=== PATIENT | male | born 1960 | race Caucasian/White ===

== ENCOUNTER 2018-04-09 14:30 | Emergency (ER) | payer MEDICARE, MEDICAID ==
[~2018-04-09] VITALS: Ht 167.6 cm; Wt 88.5 kg
--- NOTE | ~2018-04-09 | EKG ---
[place], [place] ELECTROCARDIOGRAM REPORT NAME: STEW CASTANEDA UNIT #: [id number] ROOM: DOCTOR: EPIPHANY DRAFT REPORT BIRTHDATE: [birth year] [facility] Test Date: 2018-04-09 Test Time: 15:21:38 Pat Name: STEW CASTANEDA Department: ER Room: 20 Gender: M Senior Financial Reporting Accountant: Jose L Mason : 1960 Requested By: ALESSIO SMITH DNP Order Number: [id number] Reading MD: Brent Chi MD Measurements Intervals [place] Rate: 90 P: 47 KS: 170 QRS: 36 QRSD: 98 T: 47 QT: 353 QTc: 432 Interpretive Statements Sinus rhythm Electronically Signed On 04-10-2018 9:34:13 PST by Brent Chi MD CM:EKGRPT:ELECTROCARDIOGRAM REPORT [id number] ALESSIO SMITH DNP EPIPHANY DRAFT REPORT ALESSIO SMITH DNP
[~2018-04-09 14:30] MED LIST: ABILIFY10 MG PO; ABILIFY30 MG PO; ABILIFY5 MG PO; ADVAIR 500/501 E1 INH; ADVAIR DISKUS 51 DSK INH; ANTIVERT25 MG PO; ASPIR-LOW81 MG PO; ATARAX25 MG PO; ATIVAN1 MG PO; BACTROBAN OINT22 GM PO; BENADRYL25 MG PO; BIAXIN500 MG PO; BRIN20TA PO; BRINTELLIX PO; CARBIDOPA & LEV1 TA1 PO; CARVEDILOL12.5 MG PO; CILOXAN 5 ML5 M1 OP; CILOXAN 5 ML5 M1 OT; CLINDAMYCIN HC300 MG PO; CLONAZEPAM1 MG PO; COLACE100 MG PO; COMBIVENT1 AR1 IH; COMBIVENT1 ARO IH; COREG12.5 MG PO; CRESTOR5 MG; CRESTOR5 MG PO; DAYPRO600 M1 PO; DEPLIN7.5 MG PO; DESIPRAMINE HC100 MG PO; DRISDOL50000 IU PO; DYNAPEN500 MG PO; ELIMITE 5%60 GM PO; EXEL13.31 T; EXELON13.3 MG/21 T; EXELON4.6 MG/24 T; EXELON9.5 MG/24 T; EXELON9.5 MG/24 TD; FANAPT10 MG PO; FANAPT12 MG PO; FANAPT4 MG PO; FANAPT6 MG PO; FANAPT8 MG PO; FETZIMA; FETZIMA PO; FIORICET; FIORICET 325 MG1 TAB PO; FLEXERIL10 MG PO; Fetzima PO; GABAPENTIN300 M1 PO; GABAPENTIN300 MG PO; GEODON20 MG PO; GEODON40 MG PO; GEODON80 MG PO; HYDROXYZINE PAM25 M1 PO; HYDROXYZINE PAM50 MG PO; IBU-8800 MG PO; IMIPRAMINE HCL50 MG PO; INVEGA1.5 MG PO; INVEGA6 MG PO; KENALOG0.1% TP; KLONOPIN0.5 MG PO; KLONOPIN1 MG PO; KLONOPIN2 M1 PO; KLONOPIN2 MG PO; LAMICTAL ODT200 MG PO; LAMICTAL100 MG PO; LAMICTAL200 MG PO; LAMICTAL25 MG PO; LAMOTRIGINE200 MG PO; LATUDA20 MG PO; LEVOFLOXACIN500 MG PO; LIPITOR20 MG PO; LISINOPRIL10 MG PO; LISINOPRIL20 MG PO; LITHIUM CARBON300 M1 PO; LITHIUM CARBON300 M2 PO; LOPRESSOR25 MG PO; LOPRESSOR50 MG PO; MAPAP325 MG PO; MASON NATURAL2000 IU PO; MEDROL DOSEPAK4 MG PO; MELOXICAM7.5 MG PO; METFORMIN HCL500 MG PO; METHYLPHENIDATE5 M1 PO; METOPROLOL SUCC50 M1 PO; METOPROLOL25 MG PO; MIRALAX17 GM/DOSE PO; MIRTAZAPINE45 MG PO; MOM30 M1 PO; MOTRIN600 MG PO; MOTRIN800 MG PO; NAPROSYN500 MG PO; NEURONTIN300 MG PO; NORFLEX100 MG PO; OXYGEN; PAXIL20 MG PO; PAXIL40 MG PO; PERCOCET 325 MG1 TA2 PO; PERCOCET 325 MG1 TA5 PO; PERCOCET 325 MG1 TA7 PO; PERCOCET 325 MG1 TAB PO; PRAVACHOL20 MG PO; PRAVASTATIN SOD10 MG PO; PRAVASTATIN SOD40 MG PO; PREDNICOT20 MG PO; PREDNISONE10 MG PO; PRILOSEC20 MG PO; PRIMIDONE50 MG PO; PRISTIQ50 MG PO; PROAIR HFA0.09 MG/AC INH; PROTONIX40 MG PO; REMERON30 MG PO; REXULTI2 MG PO; RITALIN PO; ROBAXIN750 MG PO; ROZEREM8 MG PO; SEPTRA DS 800 M1 TAB PO; SEROQUEL XR300 MG PO; SEROQUEL200 MG PO; SEROQUEL25 MG PO; SEROQUEL300 MG PO; THERAGRAN1 TA2 PO; TOBRADEX 0.1%-2.5 ML OP; TRAMADOL HCL50 MG PO; TYLENOL W/CODEI1 TA2 PO; Theragran M,Cen1 TAB PO; VENTOLIN H0.09 MG/AC INH; VIBRAMYCIN100 MG PO; VIIBRYD40 MG PO; VISTARIL100 MG PO; VISTARIL50 MG PO; VITAMIN D2000 IU PO; VITAMIN D5000 IU PO; VITAMIN D50000 I2 PO; VITAMIN D50000 I3 PO; VYVANSE50 MG PO; XANAX0.25 MG PO; ZANAFLEX4 MG PO; ZESTRIL10 MG PO; ZITHROMAX Z PA250 MG PO; ZOFRAN4 MG PO; ZOLPIDEM5 MG PO; ZYPREXA10 MG PO; ZYPREXA20 MG PO; ZYPREXA5 MG PO; [UNRECOGNIZED DRUG - OTHER] PO; [UNRECOGNIZED DRUG - REMARK]
[2018-04-09 15:39] LABS: BASO # 0.1 10*3/uL (0.0-0.1); BASO % 0.8 % (0.0-1.0); EOS # 0.8 10*3/uL (0.0-0.4); EOS % 8.5 % (1.0-4.0); HEMATOCRIT 43.3 % (42.0-52.0); HEMOGLOBIN 14.9 g/dl (14.0-18.0); LYMPH # 1.3 10*3/uL (1.3-4.4); LYMPH % 12.7 % (27.0-41.0); MEAN CELL VOLUME 93.7 fl (80.0-94.0); MEAN CORPUSCULAR HGB 32.3 pg (27.0-31.0); MEAN CORPUSCULAR HGB CONC 34.4 g/dl (33.0-37.0); MEAN PLATELET VOLUME 10.2 fl (9.6-12.3); MONO # 0.7 10*3/uL (0.1-1.0); MONO % 6.9 % (3.0-9.0); NEUT % 70.7 % (47.0-73.0); PLATELET COUNT AUTOMATED 236 10*3/uL (130-400); RED BLOOD COUNT 4.62 10*6/uL (4.50-5.90); RED CELL DISTRI WIDTH 13.6 % (0-14.5); WHITE BLOOD COUNT 9.9 10*3/uL (4.8-10.8)
[2018-04-09 15:47] LABS: ACT PARTIAL THROMBO TIME 24.4 SECONDS (20.8-31.5); INTERNATIONAL NORM RATIO 1.1 (2.0-3.5)
[2018-04-09 15:53] LABS: ALBUMIN 3.6 gm/dl (3.1-4.5); ALKALINE PHOSPHATASE 111 U/L (45-117); BUN 6 mg/dl (7-24); CHLORIDE 105 mmol/L (98-107); LIPASE 123 U/L (73-393); SGOT/AST 27 IU/L (3-35); SGPT/ALT 30 U/L (12-78); SODIUM 137 mmol/L (136-145); TOTAL PROTEIN 7.3 gm/dL (6.4-8.2)
[2018-04-09 15:56] LABS: TROPONIN I < 0.015 ng/ml (<0.045)
[2018-04-09 15:57] LABS: BILIRUBIN NEGATIVE (NEGATIVE); BLOOD NEGATIVE (NEGATIVE); CLARITY CLEAR (CLEAR); COLOR YELLOW (YELLOW); GLUCOSE NEGATIVE (NEGATIVE); KETONE NEGATIVE (NEGATIVE); LEUKO ESTERASE TRACE (NEGATIVE); NITRITE NEGATIVE (NEGATIVE); SPECIFIC GRAVITY 1.015 (1.005-1.030); UROBILINOGEN 0.2 E.U./dl (0.2-1.0)
[2018-04-09 16:05] LABS: BACTERIA 1+; EPITHELIAL CELLS 0-2; RBC 0-2 rbc/hpf (0-2)
[2018-04-09 17:30] VITALS: BP 130/74
== END 2018-04-09 17:30 | disposition short-term general hospital (02) ==
LOC: ED 14:30
PROVIDERS: Nurse Practitioner Family
DX: I63.9 Cerebral infarction, unspecified (principal); J44.9 Chronic obstructive pulmonary disease, unspecified; I10 Essential (primary) hypertension; E78.5 Hyperlipidemia, unspecified; E11.9 Type 2 diabetes mellitus without complications; G43.909 Migraine, unspecified, not intractable, without status migrainosus; Z88.0 Allergy status to penicillin; Z88.6 Allergy status to analgesic agent; Z79.899 Other long term (current) drug therapy; Z87.891 Personal history of nicotine dependence

== ENCOUNTER 2018-12-11 20:14 | Inpatient (IN) | payer MEDICARE ==
[~2018-12-11] VITALS: Ht 167.6 cm; Wt 90.8 kg
--- NOTE | ~2018-12-11 | EKG ---
[place], [place] ELECTROCARDIOGRAM REPORT NAME: STEW CASTANEAD UNIT #: [id number] ROOM: 404 DOCTOR: JUAN ANTONIO DRAFT REPORT BIRTHDATE: [birth year] [facility] Test Date: 2018-12-12 Test Time: 01:37:21 Pat Name: STEW CASTANEDA Department: Room: 404 Gender: M Patient Observer: Elina Chandler : 1960 Requested By: LAURA CARNES Order Number: [id number] Reading MD: Shadi Morel Measurements Intervals [place] Rate: 69 P: 55 NC: 194 QRS: 42 QRSD: 94 T: 34 QT: 367 QTc: 393 Interpretive Statements Sinus rhythm Probable left atrial enlargement Baseline wander in lead(s) V4,V5 Partial missing lead(s): V6 Compared to ECG 09/06/2018 19:36:20 Right-axis deviation no longer present Electronically Signed On 12-13-2018 12:08:26 PDT by Shadi Morel CM:EKGRPT:ELECTROCARDIOGRAM REPORT [id number] LAURA LANGFORD DRAFT REPORT LAURA CARNES DO
--- NOTE | ~2018-12-11 | EKG ---
[place], [place] ELECTROCARDIOGRAM REPORT NAME: STEW CASTANEDA UNIT #: [id number] ROOM: 404 DOCTOR: JUAN ANTONIO DRAFT REPORT BIRTHDATE: [birth year] [facility] Test Date: 2018-12-11 Test Time: 20:18:20 Pat Name: STEW CASTANEDA Department: Room: 404 Gender: M Academy Director: : 1960 Requested By: LAURA CARNES Order Number: [id number] Reading MD: Shadi Morel Measurements Intervals [place] Rate: 81 P: [place]: QRS: 43 QRSD: 104 T: 46 QT: 360 QTc: 418 Interpretive Statements Sinus rhyhtm Can not rule out Atrial flutter with block due to artifacts Abnormal R-wave progression, early transition Compared to ECG 09/06/2018 19:36:20 AV block, advanced (high-grade) now present Sinus rhythm no longer present Right-axis deviation no longer present Electronically Signed On 12-13-2018 12:07:44 PDT by Shadi Morel CM:EKGRPT:ELECTROCARDIOGRAM REPORT 2018 1207 LAURA LANGFORD DRAFT REPORT LAURA CARNES DO
--- NOTE | ~2018-12-11 | EKG ---
[place], [place] ELECTROCARDIOGRAM REPORT NAME: STEW CASTANEDA UNIT #: [id number] ROOM: 404 DOCTOR: JUAN ANTONIO DRAFT REPORT BIRTHDATE: [birth year] [facility] Test Date: 2018-12-11 Test Time: 21:55:51 Pat Name: STEW CASTANEDA Department: Room: 404 Gender: M Instrument Sterilizer: LINH : 1960 Requested By: LAURA CARNES Order Number: [id number] Reading MD: Shadi Morel Measurements Intervals [place] Rate: 76 P: 56 CO: 178 QRS: 34 QRSD: 100 T: 35 QT: 364 QTc: 410 Interpretive Statements Sinus rhythm Compared to ECG 09/06/2018 19:36:20 Right-axis deviation no longer present Electronically Signed On 12-13-2018 12:08:01 PDT by Shadi Morel CM:EKGRPT:ELECTROCARDIOGRAM REPORT 1208 LAURA LANGFORD DRAFT REPORT LAURA CARNES DO
[~2018-12-11 20:14] MED LIST changes: +ABILIFY15 MG PO; +ANORO ELLIPTA1 EACH INH; +ASPIRIN81 M1 PO; +IMITREX100 MG PO; +LAMICTAL XR300 M1 PO; +TOPAMAX100 M1 PO; +TRINTELLIX20 MG PO
[2018-12-11 20:18] VITALS: BP 122/74
[2018-12-11 20:32] LABS: BASO # 0.1 10*3/uL (0.0-0.1); BASO % 0.9 % (0.0-1.0); EOS # 0.9 10*3/uL (0.0-0.4); EOS % 9.1 % (1.0-4.0); HEMATOCRIT 45.9 % (42.0-52.0); HEMOGLOBIN 15.5 g/dl (14.0-18.0); LYMPH # 2.3 10*3/uL (1.3-4.4); MEAN CORPUSCULAR HGB 32.4 pg (27.0-31.0); MEAN CORPUSCULAR HGB CONC 33.8 g/dl (33.0-37.0); MEAN PLATELET VOLUME 10.1 fl (9.6-12.3); MONO # 0.8 10*3/uL (0.1-1.0); MONO % 8.2 % (3.0-9.0); NEUT # 5.7 10*3/uL (2.3-7.9); NEUT % 58.3 % (47.0-73.0); PLATELET COUNT AUTOMATED 209 10*3/uL (130-400); RED BLOOD COUNT 4.78 10*6/uL (4.50-5.90); RED CELL DISTRI WIDTH 14.6 % (0-14.5); WHITE BLOOD COUNT 9.9 10*3/uL (4.8-10.8)
[2018-12-11 20:51] LABS: ALBUMIN 3.7 gm/dl (3.1-4.5); ALKALINE PHOSPHATASE 109 U/L (45-117); BUN 5 mg/dl (7-24); CHLORIDE 104 mmol/L (98-107); CREATININE 1.19 mg/dL (0.70-1.30); POTASSIUM 3.7 mmol/L (3.5-5.1); SGOT/AST 15 IU/L (3-35); SGPT/ALT 26 U/L (12-78); SODIUM 134 mmol/L (136-145)
[2018-12-11 20:52] LABS: TROPONIN I < 0.015 ng/ml (<0.045)
[2018-12-11 21:08] LABS: ACT PARTIAL THROMBO TIME 27.9 SECONDS (20.0-32.1)
--- NOTE | 2018-12-11 21:14 | NUR ---
FAMILY TO DESK STATES PT IS NOT ACTING RIGHT WAS STARRING OFF IN SPACE I WENT TO CHECK ON PT IS WAS ABLE TO TELL ME HIS NAME AND WHERE HE WAS AT DENIES HEADACHE STILL FEELING A LITTLE DIZZY WILL CONTINUE TO MONITOR CALL LIGHT IN REACH
[2018-12-11 21:15] VITALS: BP 106/67
[2018-12-11 22:16] VITALS: BP 92/56
--- NOTE | 2018-12-11 22:29 | NUR ---
PTS BLOOD PRESSURE WAS A LITTLE LOW DR CARNES NOTIFIED
--- NOTE | 2018-12-11 23:14 | NUR ---
NURSE TO NURSE FROM RIANA DAMON
[2018-12-12] VITALS: BP 121/73
[2018-12-12 00:32] VITALS: BP 111/72
[2018-12-12 00:55] VITALS: BP 121/73
--- NOTE | 2018-12-12 00:55 | NUR ---
A 58, admitted to , under the services of BELÉN Sen DO with a diagnosis of CHEST PAIN. Chief complaint is CHEST PAIN. Patient arrived via stretcher from ER. Monitor applied. Initial assessment completed. Vital signs taken and recorded. BELÉN SEN DO notified of admission to the unit. Orders received. See assessment for past medical history, medications and allergies. Patient and/or family oriented to unit. [facility] visitation policy reviewed. Clothing/patient valuable form completed. BALTAZAR CAMERON
--- NOTE | 2018-12-12 01:30 | NUR ---
MED LIST UPDATED WITH PATIENT LIST AND .
[2018-12-12] MEDS ORDERED: PRAVASTATIN SOD80 MG PO (01:32)
[2018-12-12] MEDS ORDERED: ANORO ELLIPTA1 EACH INH (01:33)
[2018-12-12] MEDS ORDERED: METOPROLOL SUCC25 M2 PO (01:37)
[2018-12-12] MEDS ORDERED: ASPIR LOW81 MG PO (01:38)
[2018-12-12] MEDS ORDERED: VRAYLAR4.5 MG PO (01:44)
[2018-12-12] MEDS ORDERED: TOPAMAX100 M1 PO (01:45)
[2018-12-12 06:24] LABS: BASO # 0.1 10*3/uL (0.0-0.1); BASO % 1.1 % (0.0-1.0); EOS # 1.1 10*3/uL (0.0-0.4); EOS % 12.6 % (1.0-4.0); HEMATOCRIT 44.4 % (42.0-52.0); HEMOGLOBIN 15.4 g/dl (14.0-18.0); LYMPH # 1.9 10*3/uL (1.3-4.4); MEAN CELL VOLUME 94.7 fl (80.0-94.0); MEAN CORPUSCULAR HGB 32.8 pg (27.0-31.0); MEAN CORPUSCULAR HGB CONC 34.7 g/dl (33.0-37.0); MEAN PLATELET VOLUME 10.3 fl (9.6-12.3); MONO # 0.8 10*3/uL (0.1-1.0); MONO % 9.4 % (3.0-9.0); NEUT # 4.5 10*3/uL (2.3-7.9); NEUT % 53.1 % (47.0-73.0); PLATELET COUNT AUTOMATED 194 10*3/uL (130-400); RED BLOOD COUNT 4.69 10*6/uL (4.50-5.90); RED CELL DISTRI WIDTH 14.6 % (0-14.5); WHITE BLOOD COUNT 8.4 10*3/uL (4.8-10.8)
[2018-12-12 06:50] LABS: ALBUMIN 3.3 gm/dl (3.1-4.5); BUN 6 mg/dl (7-24); CHLORIDE 109 mmol/L (98-107); POTASSIUM 4.6 mmol/L (3.5-5.1); SGPT/ALT 24 U/L (12-78); SODIUM 138 mmol/L (136-145)
[2018-12-12 06:53] LABS: ALKALINE PHOSPHATASE 103 U/L (45-117); CREATININE 1.12 mg/dL (0.70-1.30); PHOSPHOROUS 3.6 mg/dL (2.5-4.9); SGOT/AST 15 IU/L (3-35); TOTAL PROTEIN 6.3 gm/dL (6.4-8.2)
--- NOTE | 2018-12-12 09:00 | NUR ---
Chemicals Distiller in to talk to patient. Patient states lives at home with . There are few steps in the home. Physician: evangelina alcaraz [facility] Home health services: none Patient's level of ADLs: INDEPENDENT Patient has working utilities: all working DME: none Follow-up physician's appointment after d/c: will be made by hospitalist nurse director upon discharge Does patient want to access PORTAL?: no Discharge plan discussed with patient, he lives at home with , he is independent in adls and ambulation, patient states he will return home when able and denies any home needs. MIKI MATHIAS
[2018-12-12 12:00] VITALS: BP 119/60; BP 121/73
--- NOTE | 2018-12-12 14:47 | NUR ---
Discharge instructions reviewed with patient/family. Patient receptive and verbalizes understanding. Follow-up care arranged. Written instructions given to patient/family. ANABEL CERNA
== END 2018-12-12 14:47 | disposition home or self-care (01) | DRG 313 ==
LOC: ED 20:14 → EDHOLD 23:34 → 4E 23:34
PROVIDERS: Emergency Medicine; Student in an Organized Health Care Education/Training Program; ADMIT Internal Medicine
DX: R07.89 Other chest pain (principal); E87.1 Hypo-osmolality and hyponatremia; I10 Essential (primary) hypertension; F41.9 Anxiety disorder, unspecified; J45.909 Unspecified asthma, uncomplicated; J44.9 Chronic obstructive pulmonary disease, unspecified; F32.9 Major depressive disorder, single episode, unspecified; K21.9 Gastro-esophageal reflux disease without esophagitis; E78.5 Hyperlipidemia, unspecified; G40.909 Epilepsy, unspecified, not intractable, without status epilepticus; D72.1 Eosinophilia; R73.9 Hyperglycemia, unspecified; E83.41 Hypermagnesemia; D75.89 Other specified diseases of blood and blood-forming organs; F17.210 Nicotine dependence, cigarettes, uncomplicated; G25.0 Essential tremor; F10.10 Alcohol abuse, uncomplicated; E87.8 Other disorders of electrolyte and fluid balance, not elsewhere classified; D72.810 Lymphocytopenia; Z90.49 Acquired absence of other specified parts of digestive tract; Z90.89 Acquired absence of other organs; Z88.0 Allergy status to penicillin; Z88.8 Allergy status to other drugs, medicaments and biological substances; Z79.82 Long term (current) use of aspirin; Z79.899 Other long term (current) drug therapy; Z89.022 Acquired absence of left finger(s); Z82.49 Family history of ischemic heart disease and other diseases of the circulatory system; Z80.1 Family history of malignant neoplasm of trachea, bronchus and lung; Z81.8 Family history of other mental and behavioral disorders; Z83.6 Family history of other diseases of the respiratory system; Z71.6 Tobacco abuse counseling

== ENCOUNTER 2019-04-14 13:21 | Inpatient (IN) | payer MEDICARE ==
[~2019-04-14] VITALS: Ht 170.1 cm; Wt 83.9 kg
[~2019-04-14 13:21] MED LIST changes: +ASPIR LOW81 MG PO; +METOPROLOL SUCC25 M2 PO; +PRAVASTATIN SOD80 MG PO; +VRAYLAR4.5 MG PO
[2019-04-14 13:22] VITALS: BP 139/88
--- NOTE | 2019-04-14 13:45 | NUR ---
PT ACS PROTOCOL, EKG DONE WITHIN 10 MINUTES, DR NEUMANN WANTED TO OBTAINED A NEW EKG, PT WAS SHAKING, NEW EKG MDONE OUT OF 10 MIN PROTOCOL WINDOW.
[2019-04-14 13:54] LABS: BASO # 0.1 10*3/uL (0.0-0.1); BASO % 0.8 % (0.0-1.0); EOS # 0.8 10*3/uL (0.0-0.4); EOS % 10.7 % (1.0-4.0); HEMOGLOBIN 15.4 g/dl (14.0-18.0); LYMPH # 1.5 10*3/uL (1.3-4.4); LYMPH % 20.1 % (27.0-41.0); MEAN CELL VOLUME 94.9 fl (80.0-94.0); MEAN CORPUSCULAR HGB 32.5 pg (27.0-31.0); MEAN CORPUSCULAR HGB CONC 34.2 g/dl (33.0-37.0); MONO # 0.6 10*3/uL (0.1-1.0); NEUT # 4.5 10*3/uL (2.3-7.9); PLATELET COUNT AUTOMATED 204 10*3/uL (130-400); RED BLOOD COUNT 4.74 10*6/uL (4.50-5.90); RED CELL DISTRI WIDTH 13.4 % (0-14.5); WHITE BLOOD COUNT 7.4 10*3/uL (4.8-10.8)
[2019-04-14 14:01] LABS: ACT PARTIAL THROMBO TIME 27.6 SECONDS (20.0-32.1)
[2019-04-14 14:06] LABS: ALBUMIN 3.8 gm/dl (3.1-4.5); ALKALINE PHOSPHATASE 95 U/L (45-117); BUN 8 mg/dl (7-24); CHLORIDE 105 mmol/L (98-107); CREATININE 1.01 mg/dL (0.70-1.30); POTASSIUM 4.1 mmol/L (3.5-5.1); SGOT/AST 18 IU/L (3-35); SGPT/ALT 34 U/L (12-78); SODIUM 135 mmol/L (136-145); TOTAL PROTEIN 7.3 gm/dL (6.4-8.2)
[2019-04-14 14:08] LABS: LIPASE 109 U/L (73-393)
[2019-04-14 14:10] LABS: TROPONIN I < 0.015 ng/ml (<0.045)
[2019-04-14 14:57] VITALS: BP 126/74
[2019-04-14 15:30] VITALS: BP 122/68
--- NOTE | 2019-04-14 15:42 | NUR ---
PT RESTING IN ROOM, DENIES ANY SOB OR CHEST PAIN.
[2019-04-14 16:45] VITALS: BP 132/789
--- NOTE | 2019-04-14 16:45 | NUR ---
Called [facility] Unitaldo Bloor to fax updated med list.
[2019-04-14 17:00] VITALS: BP 136/81
--- NOTE | 2019-04-14 17:00 | NUR ---
A 58, admitted to , under the services of JAYRO Staton DO with a diagnosis of Chest Pain r/o [place]. Chief complaint is shortness of breath. Patient arrived via stretcher from ER. Monitor applied. Initial assessment completed. Vital signs taken and recorded. JAYRO STATON DO notified of admission to the unit. Orders received. See assessment for past medical history, medications and allergies. Patient and/or family oriented to unit. [address] visitation policy reviewed. Clothing/patient valuable form completed. JAC BROWNE
--- NOTE | 2019-04-14 17:08 | NUR ---
Face to face encounter with Dr. Chi regarding consult for chest pain. Labs were reviewed and date of echo and stress test discussed. No new orders at this time. Physician to follow up at bedside.
[2019-04-14] MEDS ORDERED: CRESTOR40 M1 PO (17:24)
[2019-04-14] MEDS ORDERED: MYSOLINE50 M2 PO (17:24)
[2019-04-14 20:00] VITALS: BP 117/74
--- NOTE | 2019-04-14 23:30 | NUR ---
PT RESTING IN BED. VOICES NO CONCERNS AT THIS TIME. RESPS EASY AND NON LABORED. NO S/S OF DISTRESS NOTED. VSS. WHITE BOARD UPDATED. CALL LIGHT WITHIN REACH.
[2019-04-15] VITALS: BP 116/61
--- NOTE | 2019-04-15 03:42 | NUR ---
Patient sleeping. Respirations relaxed and easy. Siderails up . [place] on. No s/s of distress noted. Call light within reach HISSOM,JOHN
--- NOTE | 2019-04-15 05:09 | NUR ---
24 HR chart check completed.
[2019-04-15 06:17] LABS: BASO % 0.2 % (0.0-1.0); EOS % 0.2 % (1.0-4.0); HEMATOCRIT 45.5 % (42.0-52.0); HEMOGLOBIN 15.4 g/dl (14.0-18.0); LYMPH # 0.7 10*3/uL (1.3-4.4); LYMPH % 6.6 % (27.0-41.0); MEAN CELL VOLUME 95.4 fl (80.0-94.0); MEAN CORPUSCULAR HGB 32.3 pg (27.0-31.0); MEAN CORPUSCULAR HGB CONC 33.8 g/dl (33.0-37.0); MEAN PLATELET VOLUME 10.3 fl (9.6-12.3); MONO # 0.6 10*3/uL (0.1-1.0); MONO % 5.5 % (3.0-9.0); NEUT % 86.8 % (47.0-73.0); PLATELET COUNT AUTOMATED 222 10*3/uL (130-400); RED BLOOD COUNT 4.77 10*6/uL (4.50-5.90); RED CELL DISTRI WIDTH 13.2 % (0-14.5); WHITE BLOOD COUNT 10.4 10*3/uL (4.8-10.8)
[2019-04-15 06:25] LABS: ALBUMIN 3.4 gm/dl (3.1-4.5); BUN 10 mg/dl (7-24); CHLORIDE 109 mmol/L (98-107); CHOLESTEROL 138 mg/dL (<200); CREATININE 1.02 mg/dL (0.70-1.30); PHOSPHOROUS 3.8 mg/dL (2.5-4.9); POTASSIUM 4.5 mmol/L (3.5-5.1); SGOT/AST 13 IU/L (3-35); SGPT/ALT 29 U/L (12-78); SODIUM 137 mmol/L (136-145); TOTAL PROTEIN 6.7 gm/dL (6.4-8.2); TRIGLYCERIDES 53 mg/dl (<150); VLDL CHOLESTEROL 11 mg/dL (6-40)
[2019-04-15 06:31] LABS: ALKALINE PHOSPHATASE 85 U/L (45-117); FREE T4 0.82 ng/dl (0.76-1.46); HDL CHOLESTEROL 59 mg/dl (40-60); LDL CHOLESTEROL 68 mg/dL (9-159)
--- NOTE | 2019-04-15 07:30 | NUR ---
SLEEPING SOUNDLY DURING SHIFT CHANGE ROUNDS.
[2019-04-15 07:42] LABS: VITAMIN D, 25-HYDROXY 24.6 ng/mL (30-100)
--- NOTE | 2019-04-15 07:48 | NUR ---
Shift chart check completed.24 HR chart check completed.
--- NOTE | 2019-04-15 07:52 | NUR ---
PT TO RADIOLOGY VIA W/C FOR TWO VIEW CXR.
[2019-04-15 08:30] VITALS: BP 114/80
--- NOTE | 2019-04-15 08:40 | NUR ---
PT HAS RETURNED FROM RADIOLOGY. NO C/O PAIN OR SHORTNESS OF BREATH AT THIS TIME. PT PROVIDED WITH SPUTUM CONTAINER AND INSTRUCTIONS.
--- NOTE | 2019-04-15 09:00 | NUR ---
Speech Writer in to talk to patient. Patient states lives at home with . There are few steps in the home. Physician: evangelina alcaraz [facility] Home health services: none Patient's level of ADLs: INDEPENDENT Patient has working utilities: all working DME: none Follow-up physician's appointment after d/c: will be made by hospitalist nurse director upon discharge Does patient want to access PORTAL?: no Discharge plan discussed with patient he lives at home with , he is independent in adls and ambulation, he states he will return home when medically stable and denies any home needs, case management will follow. MIKI MATHIAS
[2019-04-15 12:00] VITALS: BP 111/77
--- NOTE | 2019-04-15 12:48 | NUR ---
PT CO A HEADACHE. MEDICATED WITH PRN TYLENOL. WILL CHECK EFFECTIVENESS.
--- NOTE | 2019-04-15 15:00 | NUR ---
EARLIER TYLENOL WAS EFFECTIVE TO ALLOW PT TO NAP.
--- NOTE | 2019-04-15 15:10 | NUR ---
Patient resting quietly with no c/o discomfort. Respirations easy and regular. Vital signs stable. No overt distress. RONALDO TOUSSAINT
[2019-04-15 16:00] VITALS: BP 123/62
--- NOTE | 2019-04-15 16:50 | NUR ---
PT C/O HEADACHE /10 PRN TYLENOL GIVEN
--- NOTE | 2019-04-15 17:50 | NUR ---
NO C/O OF H/A AFTER PRN TYLENOL GIVEN
--- NOTE | 2019-04-15 19:30 | NUR ---
PT RESTING IN BED. VOICES NO CONCERNS AT THIS TIME. RESPS EASY AND NON LABORED. NO S/S OF DISTRESS NOTED. VSS. WHITE BOARD UPDATED. FAMILY IN ROOM VISITING. CALL LIGHT WITHIN REACH.
[2019-04-15 20:00] VITALS: BP 112/68
--- NOTE | 2019-04-15 21:28 | NUR ---
PT COMPLAINING OF SORE THROAT FROM COUGHING. REQUESTING COUGH DROPS. SPOKE WITH DR CARTAGENA WHO STATED TO GIVE HIM CEPACOL DROPS Q6H
--- NOTE | 2019-04-15 22:06 | NUR ---
24 HR chart check completed.
[2019-04-16] VITALS: BP 111/67
--- NOTE | 2019-04-16 03:01 | NUR ---
Patient sleeping. Respirations relaxed and easy. Siderails up . [place] on. No s/s of distress noted. Call light within reach HISSOM,JOHN
[2019-04-16 08:00] VITALS: BP 148/83
[2019-04-16] MEDS ORDERED: ZITHROMAX500 MG PO (08:58)
[2019-04-16] MEDS ORDERED: PREDNISONE10 MG PO (08:58)
[2019-04-16] MEDS ORDERED: IMDUR SA30 MG PO (08:58)
[2019-04-16] MEDS ORDERED: VITAMIN D3125 MC1 PO (08:58)
--- NOTE | 2019-04-16 09:00 | NUR ---
case management visits with patient, he states he will be discharged to home today and denies any home needs
--- NOTE | 2019-04-16 09:58 | NUR ---
PT DISCHARGED HOME AT THIS TIME. HEPLOCK DISCONTINUED. DISCHAGE INSTRUCTIONS REVIEWED WELL PRESCRIPTION INFO AND FOLLOW UP CARE. VSS.
== END 2019-04-16 09:58 | disposition home or self-care (01) | DRG 205 ==
LOC: ED 13:21 → 4E 15:36 → EDHOLD 15:36 → 4E 16:51
PROVIDERS: Emergency Medicine; Registered Nurse; ADMIT Internal Medicine
DX: M94.0 Chondrocostal junction syndrome [Tietze] (principal); J18.9 Pneumonia, unspecified organism; J44.1 Chronic obstructive pulmonary disease with (acute) exacerbation; J44.0 Chronic obstructive pulmonary disease with (acute) lower respiratory infection; E87.1 Hypo-osmolality and hyponatremia; E44.0 Moderate protein-calorie malnutrition; I10 Essential (primary) hypertension; F41.9 Anxiety disorder, unspecified; E78.5 Hyperlipidemia, unspecified; F17.210 Nicotine dependence, cigarettes, uncomplicated; K21.9 Gastro-esophageal reflux disease without esophagitis; G25.0 Essential tremor; D75.89 Other specified diseases of blood and blood-forming organs; F31.9 Bipolar disorder, unspecified; G47.33 Obstructive sleep apnea (adult) (pediatric); E55.9 Vitamin D deficiency, unspecified; G40.909 Epilepsy, unspecified, not intractable, without status epilepticus; Z91.19 Patient's noncompliance with other medical treatment and regimen; Z90.49 Acquired absence of other specified parts of digestive tract; Z71.6 Tobacco abuse counseling; Z68.29 Body mass index [BMI] 29.0-29.9, adult; Z80.1 Family history of malignant neoplasm of trachea, bronchus and lung; Z88.5 Allergy status to narcotic agent; Z88.0 Allergy status to penicillin; Z88.8 Allergy status to other drugs, medicaments and biological substances; Z79.82 Long term (current) use of aspirin; Z79.899 Other long term (current) drug therapy

== ENCOUNTER → 2019-04-25 | Outpatient (CLI) | payer MEDICARE, MEDICAID ==
[~2019-04-25] MED LIST changes: +CRESTOR40 M1 PO; +IMDUR SA30 MG PO; +MYSOLINE50 M2 PO; +VITAMIN D3125 MC1 PO; +ZITHROMAX500 MG PO
== END | disposition home or self-care (01) ==
LOC: LAB 11:04
DX: J18.9 Pneumonia, unspecified organism (principal)

== ENCOUNTER 2019-06-10 19:07 | Inpatient (IN) | payer MEDICARE ==
[~2019-06-10] VITALS: Ht 167.6 cm; Wt 104.4 kg
[2019-06-10 19:16] VITALS: BP 138/80
[2019-06-10 19:54] LABS: BASO % 0.3 % (0.0-1.0); EOS # 0.2 10*3/uL (0.0-0.4); EOS % 5.5 % (1.0-4.0); HEMATOCRIT 38.2 % (42.0-52.0); HEMOGLOBIN 13.5 g/dl (14.0-18.0); MEAN CELL VOLUME 92.3 fl (80.0-94.0); MEAN CORPUSCULAR HGB 32.6 pg (27.0-31.0); MEAN CORPUSCULAR HGB CONC 35.3 g/dl (33.0-37.0); MEAN PLATELET VOLUME 9.7 fl (9.6-12.3); MONO # 0.5 10*3/uL (0.1-1.0); MONO % 11.3 % (3.0-9.0); NEUT # 2.3 10*3/uL (2.3-7.9); NEUT % 57.6 % (47.0-73.0); PLATELET COUNT AUTOMATED 135 10*3/uL (130-400); RED BLOOD COUNT 4.14 10*6/uL (4.50-5.90); RED CELL DISTRI WIDTH 13.5 % (0-14.5)
[2019-06-10 20:09] LABS: ALBUMIN 3.1 gm/dl (3.1-4.5); ALKALINE PHOSPHATASE 81 U/L (45-117); BUN 6 mg/dl (7-24); CHLORIDE 100 mmol/L (98-107); CREATININE 1.02 mg/dL (0.70-1.30); SGOT/AST 51 IU/L (3-35); SGPT/ALT 45 U/L (12-78); SODIUM 130 mmol/L (136-145); TOTAL PROTEIN 6.3 gm/dL (6.4-8.2)
[2019-06-11] VITALS: BP 123/76
[2019-06-11 00:45] VITALS: BP 127/72
[2019-06-11 06:49] LABS: BASO % 0.3 % (0.0-1.0); EOS # 0.2 10*3/uL (0.0-0.4); HEMOGLOBIN 14.3 g/dl (14.0-18.0); LYMPH # 0.9 10*3/uL (1.3-4.4); LYMPH % 31.8 % (27.0-41.0); MEAN CELL VOLUME 94.3 fl (80.0-94.0); MEAN CORPUSCULAR HGB 32.9 pg (27.0-31.0); MEAN CORPUSCULAR HGB CONC 34.9 g/dl (33.0-37.0); MEAN PLATELET VOLUME 9.5 fl (9.6-12.3); MONO # 0.4 10*3/uL (0.1-1.0); MONO % 14.3 % (3.0-9.0); NEUT # 1.3 10*3/uL (2.3-7.9); NEUT % 45.3 % (47.0-73.0); PLATELET COUNT AUTOMATED 132 10*3/uL (130-400); RED BLOOD COUNT 4.35 10*6/uL (4.50-5.90); RED CELL DISTRI WIDTH 13.7 % (0-14.5); WHITE BLOOD COUNT 2.9 10*3/uL (4.8-10.8)
[2019-06-11 07:28] LABS: ALKALINE PHOSPHATASE 79 U/L (45-117); BUN 6 mg/dl (7-24); CHLORIDE 105 mmol/L (98-107); CREATININE 0.94 mg/dL (0.70-1.30); POTASSIUM 4.1 mmol/L (3.5-5.1); SGOT/AST 46 IU/L (3-35); SGPT/ALT 42 U/L (12-78); SODIUM 134 mmol/L (136-145); TOTAL PROTEIN 6.3 gm/dL (6.4-8.2)
[2019-06-11] MEDS ORDERED: OMEPRAZOLE40 MG PO (08:33)
[2019-06-11 09:17] VITALS: BP 116/64
[2019-06-11 12:00] VITALS: BP 111/72
[2019-06-11] MEDS ORDERED: HYDROXYCHLOROQ200 M1 PO (15:27)
[2019-06-11] MEDS ORDERED: DOXYCYCLINE100 M3 PO (15:27)
[2019-06-11] MEDS ORDERED: TAMIFLU 75MG CA75 MG PO (15:27)
== END 2019-06-11 16:25 | disposition home or self-care (01) | DRG 191 ==
LOC: ED 19:07 → EDHOLD 23:40 → 5E 23:40
PROVIDERS: Nurse Practitioner Family; Student in an Organized Health Care Education/Training Program; ADMIT Internal Medicine
DX: J44.1 Chronic obstructive pulmonary disease with (acute) exacerbation (principal); E87.1 Hypo-osmolality and hyponatremia; B34.9 Viral infection, unspecified; K21.9 Gastro-esophageal reflux disease without esophagitis; F41.9 Anxiety disorder, unspecified; F31.9 Bipolar disorder, unspecified; J84.10 Pulmonary fibrosis, unspecified; I10 Essential (primary) hypertension; E78.5 Hyperlipidemia, unspecified; G47.33 Obstructive sleep apnea (adult) (pediatric); G40.909 Epilepsy, unspecified, not intractable, without status epilepticus; D64.9 Anemia, unspecified; Z90.49 Acquired absence of other specified parts of digestive tract; Z80.1 Family history of malignant neoplasm of trachea, bronchus and lung; Z88.5 Allergy status to narcotic agent; Z88.0 Allergy status to penicillin; Z82.49 Family history of ischemic heart disease and other diseases of the circulatory system; Z81.8 Family history of other mental and behavioral disorders; Z83.6 Family history of other diseases of the respiratory system; Z79.82 Long term (current) use of aspirin; Z79.899 Other long term (current) drug therapy

== ENCOUNTER 2019-08-06 14:41 | Emergency (ER) | payer MEDICARE ==
[~2019-08-06] VITALS: Ht 167.6 cm; Wt 83.9 kg
[~2019-08-06 14:41] MED LIST changes: +DOXYCYCLINE100 M3 PO; +HYDROXYCHLOROQ200 M1 PO; +OMEPRAZOLE40 MG PO; +TAMIFLU 75MG CA75 MG PO
[2019-08-06 16:29] LABS: BASO # 0.1 10*3/uL (0.0-0.1); BASO % 0.7 % (0.0-1.0); EOS % 8.6 % (1.0-4.0); HEMATOCRIT 43.7 % (42.0-52.0); LYMPH # 1.4 10*3/uL (1.3-4.4); LYMPH % 11.6 % (27.0-41.0); MEAN CELL VOLUME 94.6 fl (80.0-94.0); MEAN CORPUSCULAR HGB 32.7 pg (27.0-31.0); MEAN CORPUSCULAR HGB CONC 34.6 g/dl (33.0-37.0); MEAN PLATELET VOLUME 9.7 fl (9.6-12.3); MONO % 8.5 % (3.0-9.0); NEUT # 8.4 10*3/uL (2.3-7.9); NEUT % 70.3 % (47.0-73.0); PLATELET COUNT AUTOMATED 221 10*3/uL (130-400); RED BLOOD COUNT 4.62 10*6/uL (4.50-5.90); RED CELL DISTRI WIDTH 13.2 % (0-14.5)
[2019-08-06 16:42] LABS: BUN 8 mg/dl (7-24); CHLORIDE 102 mmol/L (98-107); CREATININE 1.06 mg/dL (0.70-1.30); POTASSIUM 3.8 mmol/L (3.5-5.1); SODIUM 134 mmol/L (136-145)
[2019-08-06 19:05] VITALS: BP 134/79
[2019-08-06] MEDS ORDERED: CLINDAMYCIN HC300 MG PO (19:05)
[2019-08-06 19:32] LABS: BF LYMPHOCYTES 2 %; BF MACROPHAGES 19 %; BF NEUTROPHILS 79 %
[2019-08-06 19:35] LABS: BODY FLUID WBC 20775 /uL
== END 2019-08-06 19:17 | disposition home or self-care (01) ==
LOC: ED 14:41
PROVIDERS: Emergency Medicine
DX: M70.22 Olecranon bursitis, left elbow (principal); E78.00 Pure hypercholesterolemia, unspecified; F41.9 Anxiety disorder, unspecified; I10 Essential (primary) hypertension; F31.9 Bipolar disorder, unspecified; J44.9 Chronic obstructive pulmonary disease, unspecified; F17.200 Nicotine dependence, unspecified, uncomplicated; Z88.0 Allergy status to penicillin; Z88.8 Allergy status to other drugs, medicaments and biological substances; Z79.899 Other long term (current) drug therapy; Z79.82 Long term (current) use of aspirin; Z90.49 Acquired absence of other specified parts of digestive tract; Y93.89 Activity, other specified

== ENCOUNTER 2019-08-09 16:11 | Emergency (ER) | payer MEDICARE ==
[~2019-08-09] VITALS: Ht 167.6 cm; Wt 83.9 kg
[2019-08-09 17:08] LABS: BASO # 0.1 10*3/uL (0.0-0.1); BASO % 1.1 % (0.0-1.0); HEMATOCRIT 38.1 % (42.0-52.0); LYMPH # 1.3 10*3/uL (1.3-4.4); LYMPH % 17.1 % (27.0-41.0); MEAN CELL VOLUME 93.8 fl (80.0-94.0); MEAN CORPUSCULAR HGB CONC 35.2 g/dl (33.0-37.0); MEAN PLATELET VOLUME 9.3 fl (9.6-12.3); MONO # 0.5 10*3/uL (0.1-1.0); NEUT # 4.4 10*3/uL (2.3-7.9); NEUT % 60.5 % (47.0-73.0); PLATELET COUNT AUTOMATED 221 10*3/uL (130-400); RED BLOOD COUNT 4.06 10*6/uL (4.50-5.90); RED CELL DISTRI WIDTH 12.8 % (0-14.5); WHITE BLOOD COUNT 7.3 10*3/uL (4.8-10.8)
[2019-08-09 17:19] LABS: URIC ACID 4.5 mg/dL (3.5-7.2)
[2019-08-09 17:24] LABS: ALBUMIN 3.3 gm/dl (3.1-4.5); ALKALINE PHOSPHATASE 90 U/L (45-117); BUN 8 mg/dl (7-24); CHLORIDE 103 mmol/L (98-107); CREATININE 0.93 mg/dL (0.70-1.30); POTASSIUM 3.8 mmol/L (3.5-5.1); SGOT/AST 20 IU/L (3-35); SGPT/ALT 26 U/L (12-78); SODIUM 131 mmol/L (136-145)
[2019-08-09 18:43] VITALS: BP 129/80
== END 2019-08-09 19:00 | disposition short-term general hospital (02) ==
LOC: ED 16:11
PROVIDERS: Nurse Practitioner Family
DX: M71.122 Other infective bursitis, left elbow (principal); F17.200 Nicotine dependence, unspecified, uncomplicated; Z88.0 Allergy status to penicillin; Z88.6 Allergy status to analgesic agent; Z79.899 Other long term (current) drug therapy; Z79.82 Long term (current) use of aspirin; Y93.89 Activity, other specified

== ENCOUNTER 2019-08-30 10:27 | Emergency (ER) | payer MEDICARE ==
[~2019-08-30] VITALS: Ht 167.6 cm; Wt 81.6 kg
[2019-08-30 10:33] VITALS: BP 141/80
[2019-08-30 10:59] LABS: BASO # 0.1 10*3/uL (0.0-0.1); BASO % 0.8 % (0.0-1.0); EOS # 0.7 10*3/uL (0.0-0.4); EOS % 10.7 % (1.0-4.0); HEMATOCRIT 41.9 % (42.0-52.0); LYMPH # 1.2 10*3/uL (1.3-4.4); LYMPH % 18.3 % (27.0-41.0); MEAN CORPUSCULAR HGB 32.9 pg (27.0-31.0); MEAN CORPUSCULAR HGB CONC 34.6 g/dl (33.0-37.0); MEAN PLATELET VOLUME 9.7 fl (9.6-12.3); MONO # 0.6 10*3/uL (0.1-1.0); MONO % 9.5 % (3.0-9.0); NEUT # 3.8 10*3/uL (2.3-7.9); NEUT % 60.4 % (47.0-73.0); PLATELET COUNT AUTOMATED 207 10*3/uL (130-400); RED BLOOD COUNT 4.41 10*6/uL (4.50-5.90); RED CELL DISTRI WIDTH 13.3 % (0-14.5); WHITE BLOOD COUNT 6.3 10*3/uL (4.8-10.8)
[2019-08-30 11:05] LABS: BILIRUBIN NEGATIVE (NEGATIVE); BLOOD NEGATIVE (NEGATIVE); CLARITY CLEAR (CLEAR); COLOR YELLOW (YELLOW); GLUCOSE NEGATIVE (NEGATIVE); KETONE NEGATIVE (NEGATIVE); LEUKO ESTERASE NEGATIVE (NEGATIVE); NITRITE NEGATIVE (NEGATIVE); PH 6.5 (5.0-9.0); SPECIFIC GRAVITY 1.005 (1.005-1.030); UROBILINOGEN 0.2 E.U./dl (0.2-1.0)
[2019-08-30 11:11] LABS: INTERNATIONAL NORM RATIO 1.1 (2.0-3.5)
[2019-08-30 11:11] LABS: EPITHELIAL CELLS 0-2; RBC 0-2 rbc/hpf (0-2)
[2019-08-30 11:13] LABS: ALBUMIN 3.8 gm/dl (3.1-4.5); ALKALINE PHOSPHATASE 103 U/L (45-117); BUN 6 mg/dl (7-24); CHLORIDE 104 mmol/L (98-107); CREATININE 0.98 mg/dL (0.70-1.30); LIPASE 63 U/L (73-393); SGOT/AST 18 IU/L (3-35); SGPT/ALT 27 U/L (12-78); SODIUM 134 mmol/L (136-145); TOTAL PROTEIN 7.5 gm/dL (6.4-8.2)
[2019-08-30] MEDS ORDERED: FLAGYL500 MG PO (13:17)
[2019-08-30] MEDS ORDERED: NAPROSYN500 MG PO (13:17)
[2019-08-30] MEDS ORDERED: CIPRO500 MG PO (13:17)
[2019-08-30] MEDS ORDERED: TYLENOL325 M1 PO (13:17)
== END 2019-08-30 13:31 | disposition home or self-care (01) ==
LOC: ED 10:27
PROVIDERS: Emergency Medicine
DX: K57.32 Diverticulitis of large intestine without perforation or abscess without bleeding (principal); J44.9 Chronic obstructive pulmonary disease, unspecified; K21.9 Gastro-esophageal reflux disease without esophagitis; I10 Essential (primary) hypertension; E78.5 Hyperlipidemia, unspecified; Z88.0 Allergy status to penicillin; Z88.6 Allergy status to analgesic agent; Z79.899 Other long term (current) drug therapy; Z79.82 Long term (current) use of aspirin; Z87.891 Personal history of nicotine dependence

== ENCOUNTER → 2019-10-17 | Outpatient (CLI) | payer MEDICARE ==
[~2019-10-17] MED LIST changes: +CIPRO500 MG PO; +FLAGYL500 MG PO; +OMEPRAZOLE MAGN20 MG PO; -OMEPRAZOLE40 MG PO; +PROZAC20 MG PO; +TYLENOL325 M1 PO
== END | disposition home or self-care (01) ==
LOC: COVID19 00:06
DX: Z11.59 Encounter for screening for other viral diseases (principal)

== ENCOUNTER → 2019-10-24 | Day surgery (SDC) | payer MEDICARE ==
[~2019-10-24] VITALS: Ht 167.6 cm; Wt 86.2 kg
[2019-10-24 06:35] VITALS: BP 112/74
[2019-10-24 08:06] VITALS: BP 98/69
[2019-10-24 08:21] VITALS: BP 99/73
[2019-10-24 08:38] VITALS: BP 102/72
== END | disposition home or self-care (01) ==
LOC: SDC 10-20 08:00
DX: Z12.11 Encounter for screening for malignant neoplasm of colon (principal); D12.3 Benign neoplasm of transverse colon; K57.30 Diverticulosis of large intestine without perforation or abscess without bleeding; K64.0 First degree hemorrhoids; F41.9 Anxiety disorder, unspecified; I10 Essential (primary) hypertension; F32.9 Major depressive disorder, single episode, unspecified; J44.9 Chronic obstructive pulmonary disease, unspecified; Z86.010 Personal history of colon polyps; Z83.6 Family history of other diseases of the respiratory system; Z82.49 Family history of ischemic heart disease and other diseases of the circulatory system

== ENCOUNTER 2020-01-08 10:40 | Observation (INO) | payer MEDICARE ==
[~2020-01-08] VITALS: Ht 167.6 cm; Wt 81.6 kg
[2020-01-08 11:07] VITALS: BP 125/93
[2020-01-08 11:35] LABS: BASO # 0.1 10*3/uL (0.0-0.1); BASO % 1.1 % (0.0-1.0); EOS # 0.6 10*3/uL (0.0-0.4); HEMATOCRIT 42.6 % (42.0-52.0); LYMPH # 0.8 10*3/uL (1.3-4.4); LYMPH % 17.3 % (27.0-41.0); MEAN CELL VOLUME 93.8 fl (80.0-94.0); MEAN CORPUSCULAR HGB 32.2 pg (27.0-31.0); MEAN CORPUSCULAR HGB CONC 34.3 g/dl (33.0-37.0); MEAN PLATELET VOLUME 9.3 fl (9.6-12.3); MONO # 0.8 10*3/uL (0.1-1.0); NEUT # 2.3 10*3/uL (2.3-7.9); NEUT % 51.2 % (47.0-73.0); PLATELET COUNT AUTOMATED 202 10*3/uL (130-400); RED BLOOD COUNT 4.54 10*6/uL (4.50-5.90); RED CELL DISTRI WIDTH 13.8 % (0-14.5); WHITE BLOOD COUNT 4.5 10*3/uL (4.8-10.8)
[2020-01-08 11:48] LABS: ACT PARTIAL THROMBO TIME 28.4 SECONDS (20.0-32.1); INTERNATIONAL NORM RATIO 1.1 (2.0-3.5)
[2020-01-08 11:51] LABS: ALBUMIN 3.3 gm/dl (3.1-4.5); ALKALINE PHOSPHATASE 101 U/L (45-117); BUN 9 mg/dl (7-24); CHLORIDE 107 mmol/L (98-107); CREATININE 1.01 mg/dL (0.70-1.30); LIPASE 108 U/L (73-393); POTASSIUM 4.3 mmol/L (3.5-5.1); SGOT/AST 20 IU/L (3-35); SGPT/ALT 27 U/L (12-78); SODIUM 136 mmol/L (136-145); TOTAL PROTEIN 6.9 gm/dL (6.4-8.2)
[2020-01-08 11:52] LABS: TROPONIN I < 0.015 ng/ml (<0.045)
--- NOTE | 2020-01-08 13:50 | NUR ---
PATIENT DENIES WOUNDS A&OX4
--- NOTE | 2020-01-08 15:45 | NUR ---
PATIENT TAKEN TO 4TH FLOOR BY TRISTA DAMON. REPORT GIVEN TO TONY DAMON.
[2020-01-08 16:00] VITALS: BP 117/76
--- NOTE | 2020-01-08 16:00 | NUR ---
Time: 1599 A 59 year old FEMALE admitted to 4E under services of MIGUELITO HAWK DO. Pt. arrived via stretcher from ER. Chief complaint: SOB, COUGH. TONY HUTTON
[2020-01-08] MEDS ORDERED: CELEXA20 MG PO (16:01)
[2020-01-08] MEDS ORDERED: PROVENTIL HFA6.7 GM INH (16:09)
--- NOTE | 2020-01-08 19:57 | NUR ---
24 HR chart check completed.
[2020-01-08 20:00] VITALS: BP 129/87
--- NOTE | 2020-01-08 21:00 | NUR ---
RESTING IN BED WITH NO ACUTE DISTRESS NOTED. RESPIRATIONS EASY. LUNGS DIMINISHED WITH WHEEZES. PULSE OX 95% RA. NON-PROD COUGH. CALL LIGHT WITHIN REACH. NO VOICED COMPLAINTS.
[2020-01-09] VITALS: BP 134/81
--- NOTE | 2020-01-09 | NUR ---
SLEEPING. NO DISTRESS NOTED. RESPIRATIONS EASY. VSS. CALL LIGHT WITHIN REACH
--- NOTE | 2020-01-09 01:30 | NUR ---
DR FRAZIER CONTACTED REGARDING HOME MEDS NOT ORDERED, MEDS UP TO DATE IN MED REC
--- NOTE | 2020-01-09 03:00 | NUR ---
CONTINUES TO SLEEP
--- NOTE | 2020-01-09 06:00 | NUR ---
SLEPT THROUGHOUT NIGHT WITH NO DISTRESS NOTED. RESPIRATIONS EASY. CALL LIGHT WITHIN REACH. NO VOICED COMPLAINTS THIS SHIFT
[2020-01-09 06:46] LABS: BASO % 1.1 % (0.0-1.0); EOS # 0.4 10*3/uL (0.0-0.4); HEMATOCRIT 43.1 % (42.0-52.0); LYMPH # 0.8 10*3/uL (1.3-4.4); LYMPH % 20.9 % (27.0-41.0); MEAN CELL VOLUME 96.2 fl (80.0-94.0); MEAN CORPUSCULAR HGB 32.6 pg (27.0-31.0); MEAN CORPUSCULAR HGB CONC 33.9 g/dl (33.0-37.0); MEAN PLATELET VOLUME 9.6 fl (9.6-12.3); MONO # 0.5 10*3/uL (0.1-1.0); MONO % 12.5 % (3.0-9.0); NEUT # 1.9 10*3/uL (2.3-7.9); NEUT % 52.9 % (47.0-73.0); PLATELET COUNT AUTOMATED 187 10*3/uL (130-400); RED BLOOD COUNT 4.48 10*6/uL (4.50-5.90); RED CELL DISTRI WIDTH 14.1 % (0-14.5); WHITE BLOOD COUNT 3.6 10*3/uL (4.8-10.8)
[2020-01-09 07:04] LABS: ALBUMIN 3.2 gm/dl (3.1-4.5); ALKALINE PHOSPHATASE 92 U/L (45-117); BUN 9 mg/dl (7-24); CHLORIDE 106 mmol/L (98-107); CHOLESTEROL 136 mg/dL (<200); CREATININE 1.06 mg/dL (0.70-1.30); FREE T4 0.91 ng/dl (0.76-1.46); HDL CHOLESTEROL 50 mg/dl (40-60); LDL CHOLESTEROL 65 mg/dL (9-159); POTASSIUM 4.2 mmol/L (3.5-5.1); SGOT/AST 15 IU/L (3-35); SGPT/ALT 26 U/L (12-78); SODIUM 137 mmol/L (136-145); TOTAL PROTEIN 6.6 gm/dL (6.4-8.2); TRIGLYCERIDES 106 mg/dl (<150); VLDL CHOLESTEROL 21 mg/dL (6-40)
[2020-01-09 07:29] LABS: VITAMIN D, 25-HYDROXY 36.8 ng/mL (30-100)
[2020-01-09 08:00] VITALS: BP 132/75
--- NOTE | 2020-01-09 08:30 | NUR ---
Tire Sorter in to talk to patient. Patient states lives at home with his and daughter. There are 12 steps in the home. Physician: Shai Ace [facility]: [facility] Home health services: none Patient's level of ADLs: INDEPENDENT Patient has working utilities: yes DME: c-pap Follow-up physician's appointment after d/c: will be made by the hospitalist nurse director upon discharge Does patient want to access PORTAL?: no Discharge plan discussed with patient. He lives at home with his family. He states he is independent in his ADLs and ambulation. Discussed home health care services and he declines. CM will continue to follow for any discharge planning needs. When medically stable he will be discharged to home. He states either his , daughter, or a friend will provide transportation on discharge. SETH BOSS
--- NOTE | 2020-01-09 09:21 | NUR ---
Patient stated he was established with Dr. Dottie Beltran and requests that he to read echo.
[2020-01-09] MEDS ORDERED: LEVOFLOXACIN750 M2 PO (11:19)
--- NOTE | 2020-01-09 11:37 | NUR ---
DISCHARGE INSTRUCTIONS REVIEWED. HEPLOCK REMOVED.
--- NOTE | 2020-01-09 11:58 | NUR ---
PT TRANSPORTED OUT VIA WHEELCHAIR AT THIS TIME. F/U CARE AND PRESCRIPTIONS DISCUSSED.
== END 2020-01-09 11:53 | disposition home or self-care (01) ==
LOC: ED 10:40 → EDHOLD 13:20 → 4E 14:15
PROVIDERS: Emergency Medicine; Registered Nurse; ADMIT Internal Medicine; ATTEND Internal Medicine
DX: R55 Syncope and collapse (principal); J18.9 Pneumonia, unspecified organism; I10 Essential (primary) hypertension; F31.9 Bipolar disorder, unspecified; G40.909 Epilepsy, unspecified, not intractable, without status epilepticus; E78.5 Hyperlipidemia, unspecified; G25.0 Essential tremor; K21.9 Gastro-esophageal reflux disease without esophagitis; G47.33 Obstructive sleep apnea (adult) (pediatric); E66.3 Overweight; F17.200 Nicotine dependence, unspecified, uncomplicated

== ENCOUNTER → 2020-06-29 | Outpatient (CLI) | payer MEDICARE ==
[~2020-06-29] MED LIST changes: +CELEXA20 MG PO; +LEVOFLOXACIN750 M2 PO; +PROVENTIL HFA6.7 GM INH
[2020-06-29 10:08] LABS: HEMATOCRIT 45.8 % (42.0-52.0); MEAN CELL VOLUME 96.6 fl (80.0-94.0); MEAN CORPUSCULAR HGB 32.9 pg (27.0-31.0); MEAN CORPUSCULAR HGB CONC 34.1 g/dl (33.0-37.0); MEAN PLATELET VOLUME 9.7 fl (9.6-12.3); RED BLOOD COUNT 4.74 10*6/uL (4.50-5.90); RED CELL DISTRI WIDTH 13.5 % (0-14.5); WHITE BLOOD COUNT 7.3 10*3/uL (4.8-10.8)
[2020-06-29 10:39] LABS: ALBUMIN 3.5 gm/dl (3.1-4.5); ALKALINE PHOSPHATASE 83 U/L (45-117); BUN 10 mg/dl (7-24); CHLORIDE 107 mmol/L (98-107); CHOLESTEROL 241 mg/dL (<200); CPK 93 U/L (39-308); CREATININE 1.13 mg/dL (0.70-1.30); HDL CHOLESTEROL 65 mg/dl (40-60); LDL CHOLESTEROL 149 mg/dL (9-159); POTASSIUM 3.8 mmol/L (3.5-5.1); SGOT/AST 15 IU/L (3-35); SGPT/ALT 23 U/L (12-78); SODIUM 135 mmol/L (136-145); TOTAL PROTEIN 6.8 gm/dL (6.4-8.2); TRIGLYCERIDES 136 mg/dl (<150); VLDL CHOLESTEROL 27 mg/dL (6-40)
== END | disposition home or self-care (01) ==
LOC: LAB 09:31
PROVIDERS: ATTEND Nurse Practitioner Family
DX: Z12.5 Encounter for screening for malignant neoplasm of prostate (principal); E78.00 Pure hypercholesterolemia, unspecified; I10 Essential (primary) hypertension

== ENCOUNTER → 2020-07-02 | Outpatient (CLI) | payer MEDICARE | END | disposition home or self-care (01) | LOC: LAB 17:47 | PROVIDERS: ATTEND Nurse Practitioner Family | DX: R97.20 Elevated prostate specific antigen [PSA] (principal) ==

== ENCOUNTER → 2020-07-18 | Outpatient (CLI) | payer MEDICARE ==
[2020-07-20 11:07] LABS: PROSTATE SPECIFIC AG FREE 0.74 ng/mL; PROSTATE SPECIFIC AG, SERUM 3.1 ng/mL (0.0-4.0)
== END | disposition home or self-care (01) ==
LOC: LAB 12:07
PROVIDERS: ATTEND Family Medicine
DX: C79.9 Secondary malignant neoplasm of unspecified site (principal); R97.20 Elevated prostate specific antigen [PSA]

== ENCOUNTER 2020-08-22 09:01 | Emergency (ER) | payer MEDICARE ==
[~2020-08-22] VITALS: Ht 167.6 cm; Wt 81.6 kg
[2020-08-22 09:09] VITALS: BP 142/82
[2020-08-22 09:20] LABS: BASO # 0.1 10*3/uL (0.0-0.1); BASO % 0.9 % (0.0-1.0); EOS # 0.9 10*3/uL (0.0-0.4); EOS % 15.2 % (1.0-4.0); LYMPH # 1.1 10*3/uL (1.3-4.4); LYMPH % 20.1 % (27.0-41.0); MEAN CELL VOLUME 95.9 fl (80.0-94.0); MEAN CORPUSCULAR HGB 33.3 pg (27.0-31.0); MEAN CORPUSCULAR HGB CONC 34.8 g/dl (33.0-37.0); MEAN PLATELET VOLUME 9.9 fl (9.6-12.3); MONO # 0.5 10*3/uL (0.1-1.0); MONO % 9.3 % (3.0-9.0); NEUT # 3.1 10*3/uL (2.3-7.9); PLATELET COUNT AUTOMATED 166 10*3/uL (130-400); RED BLOOD COUNT 4.17 10*6/uL (4.50-5.90); RED CELL DISTRI WIDTH 12.8 % (0-14.5); WHITE BLOOD COUNT 5.7 10*3/uL (4.8-10.8)
[2020-08-22 09:33] LABS: ACT PARTIAL THROMBO TIME 27.6 SECONDS (20.0-32.1)
[2020-08-22 09:38] LABS: ALBUMIN 3.2 gm/dl (3.1-4.5); ALKALINE PHOSPHATASE 96 U/L (45-117); BUN 9 mg/dl (7-24); CHLORIDE 103 mmol/L (98-107); CREATININE 0.98 mg/dL (0.70-1.30); POTASSIUM 3.7 mmol/L (3.5-5.1); SGOT/AST 17 IU/L (3-35); SGPT/ALT 28 U/L (12-78); SODIUM 133 mmol/L (136-145); TOTAL PROTEIN 6.6 gm/dL (6.4-8.2)
[2020-08-22 09:39] LABS: TROPONIN I < 0.015 ng/ml (<0.045)
== END 2020-08-22 12:58 | disposition home or self-care (01) ==
LOC: ED 09:01
PROVIDERS: Emergency Medicine
DX: R07.89 Other chest pain (principal); R06.02 Shortness of breath; I10 Essential (primary) hypertension; F31.9 Bipolar disorder, unspecified; G40.909 Epilepsy, unspecified, not intractable, without status epilepticus; J44.9 Chronic obstructive pulmonary disease, unspecified; K21.9 Gastro-esophageal reflux disease without esophagitis; E78.5 Hyperlipidemia, unspecified; E46 Unspecified protein-calorie malnutrition; F41.9 Anxiety disorder, unspecified; F17.200 Nicotine dependence, unspecified, uncomplicated; Z88.0 Allergy status to penicillin; Z88.6 Allergy status to analgesic agent; Z79.899 Other long term (current) drug therapy; Z90.49 Acquired absence of other specified parts of digestive tract; Z98.890 Other specified postprocedural states; Z90.89 Acquired absence of other organs; Z89.022 Acquired absence of left finger(s)

== ENCOUNTER → 2020-09-16 | Outpatient (CLI) | payer MEDICARE ==
[2020-09-17 13:06] LABS: PROSTATE SPECIFIC AG FREE 0.32 ng/mL; PROSTATE SPECIFIC AG, SERUM 1.8 ng/mL (0.0-4.0)
== END | disposition home or self-care (01) ==
LOC: LAB 09:56
PROVIDERS: ATTEND Family Medicine
DX: N40.0 Benign prostatic hyperplasia without lower urinary tract symptoms (principal)

== ENCOUNTER 2020-09-25 11:25 | Emergency (ER) | payer MEDICARE ==
[~2020-09-25] VITALS: Ht 167.6 cm; Wt 81.6 kg
[2020-09-25 11:33] VITALS: BP 141/77
[2020-09-25] MEDS ORDERED: IBUPROFEN600 MG PO (14:58)
== END 2020-09-25 15:16 | disposition home or self-care (01) ==
LOC: ED 11:25
DX: S63.501A Unspecified sprain of right wrist, initial encounter (principal); S00.83XA Contusion of other part of head, initial encounter; F41.9 Anxiety disorder, unspecified; F17.200 Nicotine dependence, unspecified, uncomplicated; Z88.0 Allergy status to penicillin; Z88.6 Allergy status to analgesic agent; Z79.899 Other long term (current) drug therapy; Z90.49 Acquired absence of other specified parts of digestive tract; Z98.890 Other specified postprocedural states; Z89.022 Acquired absence of left finger(s); Z98.61 Coronary angioplasty status; W01.0XXA Fall on same level from slipping, tripping and stumbling without subsequent striking against object, initial encounter; Y93.89 Activity, other specified; Y92.89 Other specified places as the place of occurrence of the external cause; Y99.8 Other external cause status

== ENCOUNTER → 2020-11-29 | Outpatient (CLI) | payer MEDICARE ==
[~2020-11-29] MED LIST changes: +IBUPROFEN600 MG PO
[2020-11-29 09:47] LABS: HEMATOCRIT 44.5 % (42.0-52.0); MEAN CELL VOLUME 89.7 fl (80.0-94.0); MEAN CORPUSCULAR HGB 31.7 pg (27.0-31.0); MEAN CORPUSCULAR HGB CONC 35.3 g/dl (33.0-37.0); MEAN PLATELET VOLUME 9.6 fl (9.6-12.3); RED BLOOD COUNT 4.96 10*6/uL (4.50-5.90); WHITE BLOOD COUNT 8.4 10*3/uL (4.8-10.8)
[2020-11-29 10:03] LABS: ALBUMIN 3.4 gm/dl (3.1-4.5); ALKALINE PHOSPHATASE 96 U/L (45-117); BUN 7 mg/dl (7-24); CHLORIDE 102 mmol/L (98-107); CHOLESTEROL 134 mg/dL (<200); CPK 105 U/L (39-308); CREATININE 0.85 mg/dL (0.70-1.30); LDL CHOLESTEROL 60 mg/dL (9-159); POTASSIUM 4.1 mmol/L (3.5-5.1); SGOT/AST 17 IU/L (3-35); SGPT/ALT 37 U/L (12-78); SODIUM 135 mmol/L (136-145); TOTAL PROTEIN 6.9 gm/dL (6.4-8.2); TRIGLYCERIDES 119 mg/dl (<150)
[2020-12-01 12:07] LABS: PROSTATE SPECIFIC AG FREE 0.58 ng/mL; PROSTATE SPECIFIC AG, SERUM 2.6 ng/mL (0.0-4.0)
== END | disposition home or self-care (01) ==
LOC: LAB 09:01
PROVIDERS: ATTEND Family Medicine
DX: I10 Essential (primary) hypertension (principal); E78.00 Pure hypercholesterolemia, unspecified; R97.20 Elevated prostate specific antigen [PSA]; E74.00 Glycogen storage disease, unspecified

== ENCOUNTER → 2021-04-05 | Outpatient (CLI) | payer MEDICARE ==
[2021-04-05 12:42] LABS: HEMATOCRIT 45.8 % (42.0-52.0); MEAN CELL VOLUME 90.9 fl (80.0-94.0); MEAN CORPUSCULAR HGB 31.5 pg (27.0-31.0); MEAN CORPUSCULAR HGB CONC 34.7 g/dl (33.0-37.0); MEAN PLATELET VOLUME 9.2 fl (9.6-12.3); RED BLOOD COUNT 5.04 10*6/uL (4.50-5.90); RED CELL DISTRI WIDTH 13.4 % (0-14.5); WHITE BLOOD COUNT 9.2 10*3/uL (4.8-10.8)
[2021-04-05 13:00] LABS: ALBUMIN 4.1 gm/dl (3.1-4.5); BUN 8 mg/dl (7-24); CHLORIDE 97 mmol/L (98-107); CHOLESTEROL 196 mg/dL (<200); CREATININE 0.98 mg/dL (0.70-1.30); POTASSIUM 4.4 mmol/L (3.5-5.1); SGOT/AST 20 IU/L (3-35); SGPT/ALT 36 U/L (12-78); SODIUM 129 mmol/L (136-145); TRIGLYCERIDES 99 mg/dl (<150)
[2021-04-05 13:02] LABS: ALKALINE PHOSPHATASE 96 U/L (45-117); CPK 172 U/L (39-308); LDL CHOLESTEROL 97 mg/dL (9-159); TOTAL PROTEIN 7.7 gm/dL (6.4-8.2)
== END | disposition home or self-care (01) ==
LOC: LAB 12:02
PROVIDERS: ATTEND Family Medicine
DX: K21.9 Gastro-esophageal reflux disease without esophagitis (principal); E78.00 Pure hypercholesterolemia, unspecified; I10 Essential (primary) hypertension

== ENCOUNTER 2021-10-18 12:18 | Inpatient (IN) | payer MEDICARE ==
[~2021-10-18] VITALS: Ht 167.6 cm; Wt 77.1 kg
[2021-10-18 12:29] VITALS: BP 159/94
[2021-10-18 12:36] LABS: BASO # 0.1 10*3/uL (0.0-0.1); BASO % 1.2 % (0.0-1.0); EOS # 0.8 10*3/uL (0.0-0.4); EOS % 14.1 % (1.0-4.0); HEMATOCRIT 45.1 % (42.0-52.0); LYMPH # 1.1 10*3/uL (1.3-4.4); MEAN CELL VOLUME 88.3 fl (80.0-94.0); MEAN CORPUSCULAR HGB 31.1 pg (27.0-31.0); MEAN CORPUSCULAR HGB CONC 35.3 g/dl (33.0-37.0); MEAN PLATELET VOLUME 8.7 fl (9.6-12.3); MONO # 0.5 10*3/uL (0.1-1.0); MONO % 9.2 % (3.0-9.0); NEUT # 3.3 10*3/uL (2.3-7.9); NEUT % 55.8 % (47.0-73.0); PLATELET COUNT AUTOMATED 227 10*3/uL (130-400); RED BLOOD COUNT 5.11 10*6/uL (4.50-5.90); WHITE BLOOD COUNT 5.9 10*3/uL (4.8-10.8)
[2021-10-18 12:47] LABS: ACT PARTIAL THROMBO TIME 30.4 SECONDS (20.0-32.1); INTERNATIONAL NORM RATIO 1.1 (2.0-3.5)
[2021-10-18 12:53] LABS: ALKALINE PHOSPHATASE 117 U/L (45-117); BUN 4 mg/dl (7-24); CHLORIDE 97 mmol/L (98-107); CREATININE 0.75 mg/dL (0.70-1.30); POTASSIUM 4.3 mmol/L (3.5-5.1); SGOT/AST 19 IU/L (3-35); SGPT/ALT 27 U/L (12-78); SODIUM 130 mmol/L (136-145); TOTAL PROTEIN 7.1 gm/dL (6.4-8.2)
[2021-10-18 16:03] VITALS: BP 137/84
[2021-10-18 16:15] VITALS: BP 155/89
[2021-10-18] MEDS ORDERED: VENT7GM INH (16:43)
[2021-10-18] MEDS ORDERED: OMEPRAZOLE40 MG PO (16:44)
[2021-10-18] MEDS ORDERED: MYSOLINE50 M2 PO (16:45)
[2021-10-18] MEDS ORDERED: VRAYLAR3 MG PO (16:47)
[2021-10-18] MEDS ORDERED: CELEXA40 MG PO (16:47)
[2021-10-18] MEDS ORDERED: VISTARIL50 MG PO (16:48)
[2021-10-18] MEDS ORDERED: FLOMAX0.4 MG PO (16:49)
[2021-10-18] MEDS ORDERED: IMITREX100 MG PO (16:49)
[2021-10-18 20:00] VITALS: BP 136/91
[2021-10-19] VITALS: BP 146/77
[2021-10-19 08:00] VITALS: BP 149/79
[2021-10-19 12:00] VITALS: BP 166/88
[2021-10-19 16:00] VITALS: BP 136/78
[2021-10-19 20:00] VITALS: BP 147/82
[2021-10-20] VITALS: BP 155/88
== END 2021-10-20 13:30 | disposition home or self-care (01) | DRG 206 ==
LOC: ED 12:18 → EDHOLD 13:59 → 5E 13:59
PROVIDERS: Emergency Medicine; ADMIT Internal Medicine; ATTEND Internal Medicine
PROC: 4A02XM4 Measurement of Cardiac Total Activity, External Approach (ICD-10-PCS; principal; 2021-10-20)
PROC: 3E073KZ Introduction of Other Diagnostic Substance into Coronary Artery, Percutaneous Approach (ICD-10-PCS; 2021-10-20)
DX: M94.0 Chondrocostal junction syndrome [Tietze] (principal); F41.1 Generalized anxiety disorder; J44.9 Chronic obstructive pulmonary disease, unspecified; E78.2 Mixed hyperlipidemia; F32.9 Major depressive disorder, single episode, unspecified; K21.00 Gastro-esophageal reflux disease with esophagitis, without bleeding; N40.1 Benign prostatic hyperplasia with lower urinary tract symptoms; R33.8 Other retention of urine; I27.20 Pulmonary hypertension, unspecified; G25.0 Essential tremor; Z88.8 Allergy status to other drugs, medicaments and biological substances; Z88.0 Allergy status to penicillin; Z68.27 Body mass index [BMI] 27.0-27.9, adult

== ENCOUNTER → 2021-12-09 | Outpatient (CLI) | payer MEDICARE ==
[~2021-12-09] MED LIST changes: +CELEXA40 MG PO; +FLOMAX0.4 MG PO; +OMEPRAZOLE40 MG PO; +VENT7GM INH; +VRAYLAR3 MG PO
== END | disposition home or self-care (01) ==
LOC: LAB 09:30
PROVIDERS: ATTEND Urology
DX: N40.1 Benign prostatic hyperplasia with lower urinary tract symptoms (principal)

== ENCOUNTER → 2022-01-10 | Outpatient (CLI) | payer MEDICARE ==
[2022-01-10 14:07] LABS: ALKALINE PHOSPHATASE 94 U/L (45-117); BUN 12 mg/dl (7-24); CHLORIDE 101 mmol/L (98-107); CHOLESTEROL 221 mg/dL (<200); CREATININE 0.93 mg/dL (0.70-1.30); LDL CHOLESTEROL 122 mg/dL (9-159); POTASSIUM 4.1 mmol/L (3.5-5.1); SGOT/AST 21 IU/L (3-35); SGPT/ALT 36 U/L (12-78); SODIUM 134 mmol/L (136-145); THYROXINE (T4) TOTAL 10.7 ug/dl (4.5-12.1); TOTAL PROTEIN 7.3 gm/dL (6.4-8.2); TRIGLYCERIDES 76 mg/dl (<150)
== END | disposition home or self-care (01) ==
LOC: LAB 13:06
PROVIDERS: ATTEND Family Medicine
DX: T07.XXXA Unspecified multiple injuries, initial encounter (principal); J44.9 Chronic obstructive pulmonary disease, unspecified; E78.00 Pure hypercholesterolemia, unspecified; M19.012 Primary osteoarthritis, left shoulder; Z83.2 Family history of diseases of the blood and blood-forming organs and certain disorders involving the immune mechanism; F33.1 Major depressive disorder, recurrent, moderate; F41.9 Anxiety disorder, unspecified; K21.9 Gastro-esophageal reflux disease without esophagitis; R29.898 Other symptoms and signs involving the musculoskeletal system; X58.XXXA Exposure to other specified factors, initial encounter; Y93.89 Activity, other specified; Y92.89 Other specified places as the place of occurrence of the external cause; Y99.8 Other external cause status; Z76.89 Persons encountering health services in other specified circumstances

== ENCOUNTER → 2022-01-24 | Outpatient (CLI) | payer MEDICARE ==
[2022-01-29 01:05] LABS: FREE PSA 0.706 ng/mL (.)
== END | disposition home or self-care (01) ==
LOC: LAB 13:44
PROVIDERS: ATTEND Urology
DX: R97.20 Elevated prostate specific antigen [PSA] (principal)

== ENCOUNTER → 2022-03-27 | Outpatient (CLI) | payer MEDICARE | END | disposition home or self-care (01) | LOC: LAB 12:11 | PROVIDERS: ATTEND Urology | DX: R97.20 Elevated prostate specific antigen [PSA] (principal) ==

== ENCOUNTER → 2022-08-08 | Outpatient (CLI) | payer MEDICARE | END | disposition home or self-care (01) | LOC: LAB 12:26 | PROVIDERS: ATTEND Urology | DX: R97.20 Elevated prostate specific antigen [PSA] (principal) ==

== ENCOUNTER → 2022-10-17 | Outpatient (CLI) | payer OTHER | END | disposition home or self-care (01) | LOC: LAB 14:02 | PROVIDERS: ATTEND Urology | DX: C61 Malignant neoplasm of prostate (principal) ==

== ENCOUNTER → 2023-04-16 | Outpatient (CLI) | payer OTHER | END | disposition home or self-care (01) | LOC: CT 04-13 00:24 | PROVIDERS: ATTEND Physician Assistant | DX: J43.9 Emphysema, unspecified (principal); R91.8 Other nonspecific abnormal finding of lung field; J84.10 Pulmonary fibrosis, unspecified; R59.0 Localized enlarged lymph nodes; F17.210 Nicotine dependence, cigarettes, uncomplicated ==

== ENCOUNTER → 2023-05-15 | Outpatient (CLI) | payer MEDICARE | END | disposition home or self-care (01) | LOC: LAB 08:51 | PROVIDERS: ATTEND Urology | DX: C61 Malignant neoplasm of prostate (principal) ==

== ENCOUNTER 2023-08-17 14:18 | Emergency (ER) | payer MEDICARE ==
[~2023-08-17] VITALS: Wt 100.2 kg
[2023-08-17 14:46] LABS: BASO # 0.1 10*3/uL (0.0-0.1); BASO % 0.8 % (0.0-1.0); EOS # 0.9 10*3/uL (0.0-0.4); EOS % 15.5 % (1.0-4.0); LYMPH # 0.7 10*3/uL (1.3-4.4); LYMPH % 10.7 % (27.0-41.0); MEAN CELL VOLUME 90.5 fl (80.0-94.0); MEAN CORPUSCULAR HGB 30.9 pg (27.0-31.0); MEAN CORPUSCULAR HGB CONC 34.1 g/dl (33.0-37.0); MEAN PLATELET VOLUME 9.4 fl (9.6-12.3); MONO # 0.6 10*3/uL (0.1-1.0); MONO % 9.7 % (3.0-9.0); NEUT # 3.8 10*3/uL (2.3-7.9); NEUT % 62.6 % (47.0-73.0); PLATELET COUNT AUTOMATED 200 10*3/uL (130-400); RED BLOOD COUNT 4.53 10*6/uL (4.50-5.90); RED CELL DISTRI WIDTH 12.8 % (0-14.5); WHITE BLOOD COUNT 6.1 10*3/uL (4.8-10.8)
[2023-08-17 14:57] LABS: ACT PARTIAL THROMBO TIME 27.2 SECONDS (20.0-32.1)
[2023-08-17 15:07] LABS: ALKALINE PHOSPHATASE 90 U/L (46-116); BUN 10 mg/dl (9-23); CHLORIDE 98 mmol/L (98-107); POTASSIUM 4.3 mmol/L (3.4-5.1); SGPT/ALT 20 U/L (5-49); TOTAL PROTEIN 6.7 gm/dL (6.0-8.0)
[2023-08-17] MEDS ORDERED: SODIUM CHLORIDE 0.9% 500 ML IV ONE (15:50)
[2023-08-17] MEDS ORDERED: ACETAMINOPHEN 325 MG TAB PO ONE (15:50)
[2023-08-17] MEDS ORDERED: Ceftriaxone Sodium 10 ML IV ONE (16:30)
[2023-08-17] MEDS ORDERED: Doxycycline Hyclate 100 MG CAP PO ONE (16:30)
[2023-08-17 17:40] VITALS: BP 110/77
[2023-08-17] MEDS ORDERED: VIBRAMYCIN100 MG PO (17:49)
[2023-08-17] MEDS ORDERED: CYCLOBENZAPRINE5 M3 PO (17:50)
[2023-08-17] MEDS ORDERED: Bacitracin Zinc 14 GM TUBE T ONE (17:55)
[2023-08-17] MEDS ORDERED: ADVIL MIGRAINE PO (18:13)
[2023-08-17] MEDS ORDERED: Doxycycline Hyclate 100 MG CAP PO SCH (22:00)
[2023-08-18] MEDS ORDERED: Cyclobenzaprine Hydrochlorid 10 MG TAB PO SCH (10:00)
== END 2023-08-17 18:01 | disposition home or self-care (01) ==
LOC: ED 14:18
PROVIDERS: Emergency Medicine
DX: R41.82 Altered mental status, unspecified (principal); R07.81 Pleurodynia; H53.8 Other visual disturbances; F41.9 Anxiety disorder, unspecified; J44.9 Chronic obstructive pulmonary disease, unspecified; F32.A Depression, unspecified; I10 Essential (primary) hypertension; K21.9 Gastro-esophageal reflux disease without esophagitis; E78.00 Pure hypercholesterolemia, unspecified; F10.10 Alcohol abuse, uncomplicated; F17.210 Nicotine dependence, cigarettes, uncomplicated; Z88.0 Allergy status to penicillin; Z88.8 Allergy status to other drugs, medicaments and biological substances; Z98.890 Other specified postprocedural states; Z90.49 Acquired absence of other specified parts of digestive tract; Z90.89 Acquired absence of other organs; Z95.5 Presence of coronary angioplasty implant and graft

== ENCOUNTER → 2023-10-03 | Outpatient (CLI) | payer MEDICARE ==
[~2023-10-03] MED LIST changes: +ADVIL MIGRAINE PO; +CYCLOBENZAPRINE5 M3 PO
== END | disposition home or self-care (01) ==
LOC: RAD 10:19
PROVIDERS: ATTEND Physician Assistant
DX: J43.9 Emphysema, unspecified (principal); J18.9 Pneumonia, unspecified organism

== ENCOUNTER → 2023-11-14 | Outpatient (CLI) | payer MEDICARE | END | disposition home or self-care (01) | LOC: LAB 09:58 | PROVIDERS: ATTEND Urology | DX: C61 Malignant neoplasm of prostate (principal) ==

== ENCOUNTER → 2024-10-13 | Outpatient (CLI) | payer OTHER | END | disposition home or self-care (01) | LOC: CT 09:31 | PROVIDERS: ATTEND Internal Medicine Critical Care Medicine | DX: Z12.2 Encounter for screening for malignant neoplasm of respiratory organs (principal); J98.4 Other disorders of lung; R91.8 Other nonspecific abnormal finding of lung field; I25.10 Atherosclerotic heart disease of native coronary artery without angina pectoris; K76.0 Fatty (change of) liver, not elsewhere classified; Z98.890 Other specified postprocedural states; Z87.891 Personal history of nicotine dependence ==

== ENCOUNTER → 2024-12-01 | Outpatient (CLI) | payer OTHER | LOC: LAB 11:55 | PROVIDERS: ATTEND Urology | DX: C61 Malignant neoplasm of prostate (principal) ==